=== PATIENT | female | born 1950 | race Caucasian/White ===

== ENCOUNTER 2020-01-30 10:10 | Day surgery (SDC) | payer MEDICARE, OTHER ==
[2008-03-19 15:28] VITALS: BP 131/73
[~2020-01-30] VITALS: Ht 152.4 cm; Wt 92.1 kg
[~2020-01-30 10:10] MED LIST: AMBIEN 10MG10 MG PO; AMBIEN 5MG TABLE5 MG PO; AMITRIPTYLINE H50 M1 PO; CARDI-OMEGA1000 MG PO; CELEBREX 1100 MG/CAP PO; CELEBREX400 MG PO; CITRACAL ULTRAD1 TA1 PO; COUMADIN 1MG1 MG/TAB PO; ENULOSE10 GM/151 PO; FLEXERIL 1010 MG/TAB PO; FLORASTOR 250 MG PO; GABAPENTIN PO; LEVOTHYROXINE PO; LIPITOR 80MG80 MG PO; LIPITOR20 MG PO; MIRALAX 17GM PK1 PKT PO; MIRALAX PA17 GM/Dose PO; MORPHINE PO; MS CONTIN 115 MG/TAB PO; NEURONTIN300 MG/CAP PO; NEXIUM 40MG40 MG PO; NEXIUM40 MG PO; NORCO 325 MG-7.1 TAB PO; OXYCONTIN20 MG PO; PENTASA PO; PENTASA500 MG PO; PHENERGAN 25 TA25 MG PO; REFRESH DRY EYE15 ML OP; REMICADE V100 MG/VIA IV; RESTASIS0.05% OP; SINEQUAN 5050 MG/CAP PO; SYNTHROID0.112 MG/T PO; VITAMIN B121000 MC2 PO; VITAMIN D31000 IU PO; ZESTRIL40 MG PO
[2020-01-30 10:48] VITALS: BP 129/87; PULSE 77; TEMP 98.2
[2020-01-30] MEDS ORDERED: CARAFATE 1GM1 G PO (10:59)
[2020-01-30] MEDS ORDERED: SINEQUAN75 MG PO (11:00)
[2020-01-30] MEDS ORDERED: LIALDA 1.2 GM1.2 GM PO (11:01)
[2020-01-30] MEDS ORDERED: OSCAL 500 TAB500 MG PO (11:05)
[2020-01-30] MEDS ORDERED: B-121000 MCG PO (11:06)
[2020-01-30] MEDS ORDERED: PRIL40 PO (11:07)
[2020-01-30] MEDS ORDERED: ASPIRIN E.C. 8181 MG PO (11:07)
[2020-01-30] MEDS ORDERED: LIPITOR 80MG80 MG PO (11:09)
[2020-01-30] MEDS ORDERED: MASON NATURAL2000 IU PO (11:10)
[2020-01-30] MEDS ORDERED: SYNTHROID0.125 MG/T PO (11:12)
[2020-01-30] MEDS ORDERED: PLAQUENIL 200M200 MG PO (11:13)
[2020-01-30] MEDS ORDERED: MAGNESIUM500 MG PO (11:14)
[2020-01-30 13:10] VITALS: BP 119/74; PULSE 71; TEMP 97.7
--- NOTE | 2020-01-30 13:10 | NUR ---
Patient brought back to [facility] [address] via cart. Ambulated to chair with one assist. Placed on monitors, vital signs stable. Daughter called and updated. Patient states she just wants water, denies any food at this time due to diet restrictions for crohns. Call rubio within reach. Report recieved from Dominique LINDSEY. Will continue to monitor.
[2020-01-30 13:25] VITALS: BP 103/79; PULSE 74
--- NOTE | 2020-01-30 13:25 | NUR ---
Vital signs stable. Daughter is outside in parking lot. Tolerating water without difficulty. Dr. Nick at bedside to speak with patient about results. Will continue to monitor.
[2020-01-30 13:40] VITALS: BP 111/85; PULSE 68
--- NOTE | 2020-01-30 13:40 | NUR ---
Patient states she would like to go home at this time. Port de-accessed per MD orders. Tolerated well. Discharge instructions reviewed, all questions answered.
--- NOTE | 2020-01-30 13:45 | NUR ---
Patient brought down to lobby via wheel chair. Helped into [employer] vehicle. To be driven home by daughter Sandra. All belongings in hand.
== END 2020-01-30 13:45 | disposition home or self-care (01) ==
LOC: SDCO 10:10
DX: K21.9 Gastro-esophageal reflux disease without esophagitis (principal); K76.0 Fatty (change of) liver, not elsewhere classified; R10.13 Epigastric pain; R11.0 Nausea; R10.32 Left lower quadrant pain; K31.89 Other diseases of stomach and duodenum; K50.80 Crohn's disease of both small and large intestine without complications; K57.30 Diverticulosis of large intestine without perforation or abscess without bleeding; E78.5 Hyperlipidemia, unspecified; I10 Essential (primary) hypertension; G43.909 Migraine, unspecified, not intractable, without status migrainosus; F32.9 Major depressive disorder, single episode, unspecified; R01.1 Cardiac murmur, unspecified; M32.9 Systemic lupus erythematosus, unspecified; M81.0 Age-related osteoporosis without current pathological fracture; M19.90 Unspecified osteoarthritis, unspecified site; R25.1 Tremor, unspecified; R20.2 Paresthesia of skin; G57.90 Unspecified mononeuropathy of unspecified lower limb; Z87.11 Personal history of peptic ulcer disease; Z85.3 Personal history of malignant neoplasm of breast; Z79.899 Other long term (current) drug therapy; Z79.82 Long term (current) use of aspirin; Z86.19 Personal history of other infectious and parasitic diseases; Z85.41 Personal history of malignant neoplasm of cervix uteri; G89.29 Other chronic pain; Z88.1 Allergy status to other antibiotic agents; Z88.8 Allergy status to other drugs, medicaments and biological substances; Z87.19 Personal history of other diseases of the digestive system
CPT/HCPCS: 43235; G0105; J1644; J2704; J3010; J7030